=== PATIENT | female | born 1995 | race Asian ===

== ENCOUNTER 2017-06-22 17:26 | Emergency (ER) | payer OTHER ==
[2017-06-22] MEDS: IBUPROFEN 600 MG TAB PO (18:58)
== END 2017-06-22 19:04 | disposition home or self-care (01) ==
LOC: M ED 17:26
DX: J02.9 Acute pharyngitis, unspecified (principal); R51 Headache; R50.9 Fever, unspecified; R05 Cough; R09.81 Nasal congestion
CPT/HCPCS: 87804